=== PATIENT | male | born 1985 | race Caucasian/White ===

== ENCOUNTER 2024-04-18 07:35 | Outpatient (CLI) | payer OTHER, SELFPAY ==
[2024-04-18 19:02] LABS: Hematocrit 50.2 % (42.0-52.0); Hemoglobin 15.5 g/dL (14.0-18.0); Mean Corpuscular HGB Conc 30.9 g/dl (32-36); Mean Corpuscular Hemoglobin 26.7 pg (26-34); Mean Corpuscular Volume 86.6 fl (80-100); Mean Platelet Volume 11.5 fl (7.4-10.4); Platelet Count Result 216 k/mm3 (150-375); Red Cell Distribution Width 13.5 % (11.5-14.5); White Blood Count 7.9 K/mm3 (4.5-10.0)
[2024-04-18 19:18] LABS: Alanine Aminotransferase 63 U/L (6-50); Albumin Level 4.2 g/dL (3.5-5.1); Alkaline Phosphatase 49 U/L (38-126); Anion Gap 10 mmol/L (4-12); Aspartate Amino Transferase 55 U/L (17-59); Bilirubin,Total 0.3 mg/dL (0.2-1.3); Blood Urea Nitrogen 18 mg/dL (9-20); Calcium 9.2 mg/dL (8.4-10.2); Carbon Dioxide 27 mmol/L (22-30); Chloride 102 mmol/L (98-107); Cholesterol 210 mg/dL (0-200); Estimated Glomerular Filt Rate > 60; Glucose 101 mg/dL (65-110); HDL Direct 26 mg/dL; Potassium 4.3 mmol/L (3.4-5.0); Sodium 139 mmol/L (137-145); Triglycerides 291 mg/dL (<150)
[2024-04-18 19:36] LABS: LDL Cholesterol Direct 129 mg/dL
[2024-04-18 19:47] LABS: Free T4 Free Thyroxine 0.91 ng/mL (0.78-2.19); Vitamin D 25 Hydroxy 19.6 ng/mL
== END 2024-04-18 07:36 | disposition home or self-care (01) ==
PROVIDERS: PCP Nurse Practitioner Adult Health; Visit Provider Nurse Practitioner Adult Health
DX: Z13.9 Encounter for screening, unspecified (principal); R53.83 Other fatigue
CPT/HCPCS: 36415; 80053; 80061; 82306; 82607; 82746; 84439; 84443; 85027